=== PATIENT | female | born 1955 | race Caucasian/White ===

== ENCOUNTER 2023-06-01 08:34 | Inpatient (IN) ==
[2023-06-01] MEDS ORDERED: Senna TAB 8.6 mg TAB PO PRN (13:02)
[2023-06-01] MEDS ORDERED: Magnesium Hydroxide LIQ 30 ML UDC PO PRN (13:02)
[2023-06-01] MEDS: Piperacillin/Tazobactam 4.5 GM in NS 0.9% 100 ml BAG 100 ML IV SCH ×2 (18:38→23:53)
[2023-06-01] MEDS ORDERED: Albuterol HFA INHALER 8 gm MDI INH PRN (19:36)
[2023-06-02] MEDS: Piperacillin/Tazobactam 4.5 GM in NS 0.9% 100 ml BAG 100 ML IV SCH ×3 (05:56→18:50)
[2023-06-02 06:18] LABS: ABS Basophils 0.1 10^3/uL (0.0-0.1); ABS Eosinophils 0.1 10^3/uL (0.0-0.5); ABS Lymphocytes 1.7 10^3/uL (1.0-4.8); ABS Monocytes 0.4 10^3/uL (0.0-0.9); ABS Neutrophils 4.1 10^3/uL (1.5-7.6); ABS Nucleated RBC 0.01 10^3/ul; Eosinophil % 2.2 %; Hematocrit 28.9 % (35-45); Hemoglobin 9.6 g/dL (11.5-14.3); Lymphocyte % 26.2 %; Mean Corpuscular Hemoglobin 30.3 pg (27-33); Mean Corpuscular Hgb Conc 33.3 g/dL (31-36); Mean Corpuscular Volume 91.1 fL (80-97); Mean Platelet Volume 7.8 fL (7.5-11.2); Nucleated Red Blood Cells % 0.1 %/100WBC (0.0-0.8); Platelet Count 247 10^3/uL (150-450); Red Blood Count 3.17 10^6/uL (3.63-4.92); White Blood Count 6.4 10^3/uL (3.8-11.8)
[2023-06-02 06:37] LABS: Albumin 3.1 g/dL (3.2-5.2); Albumin/Globulin Ratio 1.1 (1-3); C Reactive Protein 13.63 mg/L (<8.01); Calcium 8.9 mg/dL (8.6-10.3); Creatinine, Serum 0.43 mg/dL (0.51-0.95); Globulin 2.9 g/dL (2-4); Potassium 3.5 mmol/L (3.5-5.0); Total Bilirubin 0.5 mg/dL (0.2-1.0); eGFR CKD-EPI 105.2 (>60)
[2023-06-02] MEDS: Cholecalciferol (VIT D3) 400 units TAB PO SCH (08:42)
[2023-06-02] MEDS: Potassium Chlor 20 meq TAB.ER PO SCH (08:43)
[2023-06-02] MEDS: Heparin 5000 UNITS/ML 1 mL VIAL SUBCUT SCH ×2 (08:48→21:01)
[2023-06-02] MEDS ORDERED: Influenza vaccine *QUAD* *2023-24* 0.5 ML SYRINGE IM ONE (09:00)
[2023-06-03] MEDS: Piperacillin/Tazobactam 4.5 GM in NS 0.9% 100 ml BAG 100 ML IV SCH ×4 (00:04→17:29)
[2023-06-03] MEDS: Cholecalciferol (VIT D3) 400 units TAB PO SCH (09:37)
[2023-06-03] MEDS: Potassium Chlor 20 meq TAB.ER PO SCH (09:41)
[2023-06-03] MEDS: Heparin 5000 UNITS/ML 1 mL VIAL SUBCUT SCH ×2 (09:42→21:11)
[2023-06-04] MEDS: Piperacillin/Tazobactam 4.5 GM in NS 0.9% 100 ml BAG 100 ML IV SCH ×4 (00:03→17:54)
[2023-06-04] MEDS: Potassium Chlor 20 meq TAB.ER PO SCH (08:19)
[2023-06-04] MEDS: Cholecalciferol (VIT D3) 400 units TAB PO SCH (08:20)
[2023-06-04] MEDS: Heparin 5000 UNITS/ML 1 mL VIAL SUBCUT SCH ×2 (08:20→21:15)
[2023-06-05] MEDS: Piperacillin/Tazobactam 4.5 GM in NS 0.9% 100 ml BAG 100 ML IV SCH ×5 (00:07→23:46)
[2023-06-05] MEDS: Potassium Chlor 20 meq TAB.ER PO SCH (08:25)
[2023-06-05] MEDS: Cholecalciferol (VIT D3) 400 units TAB PO SCH (08:25)
[2023-06-05] MEDS: Heparin 5000 UNITS/ML 1 mL VIAL SUBCUT SCH ×2 (08:29→20:53)
[2023-06-05 15:30] LABS: Urine Appearance Clear; Urine Bilirubin Negative (Negative); Urine Blood Negative (Negative); Urine Color Straw; Urine Glucose Negative (Negative); Urine Ketones Negative (Negative); Urine Nitrite Negative (Negative); Urine Protein Negative (Negative); Urine Specific Gravity 1.013 (1.002-1.030); Urine Urobilinogen Negative (Negative)
[2023-06-06] MEDS: Piperacillin/Tazobactam 4.5 GM in NS 0.9% 100 ml BAG 100 ML IV SCH ×3 (05:44→19:11)
[2023-06-06 06:21] LABS: ABS Basophils 0.1 10^3/uL (0.0-0.1); ABS Eosinophils 0.2 10^3/uL (0.0-0.5); ABS Lymphocytes 1.9 10^3/uL (1.0-4.8); ABS Monocytes 0.5 10^3/uL (0.0-0.9); ABS Neutrophils 3.9 10^3/uL (1.5-7.6); ABS Nucleated RBC 0.01 10^3/ul; Eosinophil % 3.5 %; Hematocrit 31.1 % (35-45); Hemoglobin 10.2 g/dL (11.5-14.3); Lymphocyte % 28.9 %; Mean Corpuscular Hemoglobin 29.8 pg (27-33); Mean Corpuscular Hgb Conc 32.9 g/dL (31-36); Mean Corpuscular Volume 90.7 fL (80-97); Nucleated Red Blood Cells % 0.1 %/100WBC (0.0-0.8); Platelet Count 297 10^3/uL (150-450); Red Blood Count 3.43 10^6/uL (3.63-4.92); Red Cell Distribution Width 18.5 % (12-17); White Blood Count 6.6 10^3/uL (3.8-11.8)
[2023-06-06 06:31] LABS: Albumin 3.4 g/dL (3.2-5.2); Albumin/Globulin Ratio 1.1 (1-3); C Reactive Protein 8.01 mg/L (<8.01); Calcium 9.3 mg/dL (8.6-10.3); Creatinine, Serum 0.47 mg/dL (0.51-0.95); Potassium 3.5 mmol/L (3.5-5.0); Total Bilirubin 0.4 mg/dL (0.2-1.0); Total Protein 6.4 g/dL (6.4-8.9)
[2023-06-06] MEDS: Cholecalciferol (VIT D3) 400 units TAB PO SCH (08:03)
[2023-06-06] MEDS: Heparin 5000 UNITS/ML 1 mL VIAL SUBCUT SCH ×2 (08:12→20:17)
[2023-06-06] MEDS: Potassium Chlor 20 meq TAB.ER PO SCH (08:13)
[2023-06-06 10:26] LABS: Erythrocyte Sed Rate 58 mm/Hr (0-29)
[2023-06-07] MEDS: Piperacillin/Tazobactam 4.5 GM in NS 0.9% 100 ml BAG 100 ML IV SCH ×4 (05:32→18:11)
[2023-06-07] MEDS: Potassium Chlor 20 meq TAB.ER PO SCH (07:56)
[2023-06-07] MEDS: Cholecalciferol (VIT D3) 400 units TAB PO SCH (07:57)
[2023-06-07] MEDS: Heparin 5000 UNITS/ML 1 mL VIAL SUBCUT SCH ×2 (08:04→21:01)
[2023-06-08] MEDS: Piperacillin/Tazobactam 4.5 GM in NS 0.9% 100 ml BAG 100 ML IV SCH ×4 (00:04→17:31)
[2023-06-08] MEDS: Potassium Chlor 20 meq TAB.ER PO SCH (08:30)
[2023-06-08] MEDS: Cholecalciferol (VIT D3) 400 units TAB PO SCH (08:35)
[2023-06-08] MEDS: Heparin 5000 UNITS/ML 1 mL VIAL SUBCUT SCH ×2 (08:37→20:55)
[2023-06-08] MEDS ORDERED: Dextrose 50% Syringe 50 ml 25 GM/50 ML SYRINGE IV PUSH PRN (18:16)
[2023-06-09] MEDS: Piperacillin/Tazobactam 4.5 GM in NS 0.9% 100 ml BAG 100 ML IV SCH ×4 (00:05→21:09)
[2023-06-09] MEDS: Cholecalciferol (VIT D3) 400 units TAB PO SCH (09:29)
[2023-06-09] MEDS: Potassium Chlor 20 meq TAB.ER PO SCH (09:34)
[2023-06-09] MEDS: Heparin 5000 UNITS/ML 1 mL VIAL SUBCUT SCH ×2 (09:34→21:10)
[2023-06-10] MEDS: Piperacillin/Tazobactam 4.5 GM in NS 0.9% 100 ml BAG 100 ML IV SCH ×4 (02:15→20:42)
[2023-06-10] MEDS: Cholecalciferol (VIT D3) 400 units TAB PO SCH (09:26)
[2023-06-10] MEDS: Potassium Chlor 20 meq TAB.ER PO SCH (09:28)
[2023-06-10] MEDS: Heparin 5000 UNITS/ML 1 mL VIAL SUBCUT SCH ×2 (09:58→20:31)
[2023-06-11] MEDS: Piperacillin/Tazobactam 4.5 GM in NS 0.9% 100 ml BAG 100 ML IV SCH ×4 (02:17→19:55)
[2023-06-11] MEDS: Potassium Chlor 20 meq TAB.ER PO SCH (08:32)
[2023-06-11] MEDS: Cholecalciferol (VIT D3) 400 units TAB PO SCH (08:34)
[2023-06-11] MEDS: Heparin 5000 UNITS/ML 1 mL VIAL SUBCUT SCH ×2 (08:36→19:56)
[2023-06-12] MEDS: Piperacillin/Tazobactam 4.5 GM in NS 0.9% 100 ml BAG 100 ML IV SCH ×4 (01:58→19:55)
[2023-06-12] MEDS: Heparin 5000 UNITS/ML 1 mL VIAL SUBCUT SCH ×2 (08:44→20:29)
[2023-06-12] MEDS: Potassium Chlor 20 meq TAB.ER PO SCH (08:47)
[2023-06-12] MEDS: Cholecalciferol (VIT D3) 400 units TAB PO SCH (08:48)
[2023-06-13] MEDS: Piperacillin/Tazobactam 4.5 GM in NS 0.9% 100 ml BAG 100 ML IV SCH ×4 (02:03→20:38)
[2023-06-13 05:55] LABS: ABS Basophils 0.1 10^3/uL (0.0-0.1); ABS Eosinophils 0.2 10^3/uL (0.0-0.5); ABS Lymphocytes 2.3 10^3/uL (1.0-4.8); ABS Monocytes 0.8 10^3/uL (0.0-0.9); ABS Neutrophils 5.7 10^3/uL (1.5-7.6); ABS Nucleated RBC 0.01 10^3/ul; Eosinophil % 2.1 %; Hematocrit 34.9 % (35-45); Hemoglobin 11.6 g/dL (11.5-14.3); Lymphocyte % 25.2 %; Mean Corpuscular Hemoglobin 29.7 pg (27-33); Mean Corpuscular Hgb Conc 33.2 g/dL (31-36); Mean Corpuscular Volume 89.4 fL (80-97); Mean Platelet Volume 7.5 fL (7.5-11.2); Nucleated Red Blood Cells % 0.1 %/100WBC (0.0-0.8); Platelet Count 323 10^3/uL (150-450); Red Cell Distribution Width 17.2 % (12-17); White Blood Count 9.1 10^3/uL (3.8-11.8)
[2023-06-13 06:12] LABS: Albumin 3.8 g/dL (3.2-5.2); Albumin/Globulin Ratio 1.3 (1-3); C Reactive Protein 5.23 mg/L (<8.01); Calcium 9.7 mg/dL (8.6-10.3); Creatinine, Serum 0.69 mg/dL (0.51-0.95); Potassium 3.6 mmol/L (3.5-5.0); Total Bilirubin 0.6 mg/dL (0.2-1.0); Total Protein 6.8 g/dL (6.4-8.9); eGFR CKD-EPI 93.9 (>60)
[2023-06-13] MEDS: Potassium Chlor 20 meq TAB.ER PO SCH (08:46)
[2023-06-13] MEDS: Cholecalciferol (VIT D3) 400 units TAB PO SCH (08:46)
[2023-06-13] MEDS: Heparin 5000 UNITS/ML 1 mL VIAL SUBCUT SCH ×2 (08:55→20:37)
[2023-06-13 10:55] LABS: Erythrocyte Sed Rate 49 mm/Hr (0-29)
[2023-06-14] MEDS: Piperacillin/Tazobactam 4.5 GM in NS 0.9% 100 ml BAG 100 ML IV SCH ×4 (01:15→20:46)
[2023-06-14] MEDS: Heparin 5000 UNITS/ML 1 mL VIAL SUBCUT SCH ×2 (08:28→20:49)
[2023-06-14] MEDS: Cholecalciferol (VIT D3) 400 units TAB PO SCH (08:30)
[2023-06-14] MEDS: Potassium Chlor 20 meq TAB.ER PO SCH (08:30)
[2023-06-14] MEDS: PAIN RELIEVING RUB (MENTHOL/SALICYLATE) 1 APPLIC TUBE TOPICAL PRN ×2 (10:44→20:54)
[2023-06-15] MEDS: Piperacillin/Tazobactam 4.5 GM in NS 0.9% 100 ml BAG 100 ML IV SCH ×4 (01:18→23:32)
[2023-06-15] MEDS: Heparin 5000 UNITS/ML 1 mL VIAL SUBCUT SCH ×2 (11:09→20:28)
[2023-06-15] MEDS: Potassium Chlor 20 meq TAB.ER PO SCH (11:10)
[2023-06-15] MEDS: Cholecalciferol (VIT D3) 400 units TAB PO SCH (11:11)
[2023-06-16] MEDS: Piperacillin/Tazobactam 4.5 GM in NS 0.9% 100 ml BAG 100 ML IV SCH ×4 (05:33→23:32)
[2023-06-16] MEDS: Heparin 5000 UNITS/ML 1 mL VIAL SUBCUT SCH ×2 (08:14→20:51)
[2023-06-16] MEDS: Potassium Chlor 20 meq TAB.ER PO SCH (08:18)
[2023-06-16] MEDS: PAIN RELIEVING RUB (MENTHOL/SALICYLATE) 1 APPLIC TUBE TOPICAL PRN ×2 (11:06→20:54)
[2023-06-16] MEDS: Cholecalciferol (VIT D3) 400 units TAB PO SCH (12:10)
[2023-06-17] MEDS: Piperacillin/Tazobactam 4.5 GM in NS 0.9% 100 ml BAG 100 ML IV SCH ×4 (05:35→22:42)
[2023-06-17] MEDS: Cholecalciferol (VIT D3) 400 units TAB PO SCH (08:55)
[2023-06-17] MEDS: Potassium Chlor 20 meq TAB.ER PO SCH (08:55)
[2023-06-18] MEDS: Piperacillin/Tazobactam 4.5 GM in NS 0.9% 100 ml BAG 100 ML IV SCH ×4 (05:03→22:26)
[2023-06-18] MEDS: Cholecalciferol (VIT D3) 400 units TAB PO SCH (09:07)
[2023-06-18] MEDS: Potassium Chlor 20 meq TAB.ER PO SCH (09:07)
[2023-06-18] MEDS: Heparin 5000 UNITS/ML 1 mL VIAL SUBCUT SCH ×2 (09:19→20:36)
[2023-06-19] MEDS: Piperacillin/Tazobactam 4.5 GM in NS 0.9% 100 ml BAG 100 ML IV SCH ×4 (05:31→22:42)
[2023-06-19] MEDS: Potassium Chlor 20 meq TAB.ER PO SCH (09:37)
[2023-06-19] MEDS: Heparin 5000 UNITS/ML 1 mL VIAL SUBCUT SCH ×2 (09:42→20:19)
[2023-06-19] MEDS: Cholecalciferol (VIT D3) 400 units TAB PO SCH (09:42)
[2023-06-20] MEDS: Piperacillin/Tazobactam 4.5 GM in NS 0.9% 100 ml BAG 100 ML IV SCH ×4 (06:05→23:24)
[2023-06-20 06:28] LABS: ABS Basophils 0.1 10^3/uL (0.0-0.1); ABS Eosinophils 0.1 10^3/uL (0.0-0.5); ABS Lymphocytes 2.2 10^3/uL (1.0-4.8); ABS Monocytes 0.8 10^3/uL (0.0-0.9); ABS Neutrophils 5.4 10^3/uL (1.5-7.6); ABS Nucleated RBC 0.01 10^3/ul; Eosinophil % 1.7 %; Hematocrit 32.9 % (35-45); Hemoglobin 10.8 g/dL (11.5-14.3); Lymphocyte % 25.8 %; Mean Corpuscular Hemoglobin 29.1 pg (27-33); Mean Corpuscular Hgb Conc 32.8 g/dL (31-36); Mean Corpuscular Volume 88.7 fL (80-97); Mean Platelet Volume 8.2 fL (7.5-11.2); Nucleated Red Blood Cells % 0.1 %/100WBC (0.0-0.8); Platelet Count 228 10^3/uL (150-450); Red Blood Count 3.71 10^6/uL (3.63-4.92); Red Cell Distribution Width 16.2 % (12-17); White Blood Count 8.6 10^3/uL (3.8-11.8)
[2023-06-20 06:50] LABS: Albumin 3.6 g/dL (3.2-5.2); Albumin/Globulin Ratio 1.2 (1-3); C Reactive Protein 37.85 mg/L (<8.01); Calcium 9.2 mg/dL (8.6-10.3); Creatinine, Serum 0.52 mg/dL (0.51-0.95); Globulin 2.9 g/dL (2-4); Potassium 3.4 mmol/L (3.5-5.0); Total Bilirubin 0.7 mg/dL (0.2-1.0); Total Protein 6.5 g/dL (6.4-8.9); eGFR CKD-EPI 99.9 (>60)
[2023-06-20] MEDS: Cholecalciferol (VIT D3) 400 units TAB PO SCH (08:41)
[2023-06-20] MEDS: Potassium Chlor 20 meq TAB.ER PO SCH ×2 (08:42→20:29)
[2023-06-20] MEDS: Heparin 5000 UNITS/ML 1 mL VIAL SUBCUT SCH ×2 (09:06→20:30)
[2023-06-20] MEDS: PAIN RELIEVING RUB (MENTHOL/SALICYLATE) 1 APPLIC TUBE TOPICAL PRN (13:52)
[2023-06-20 14:36] LABS: Erythrocyte Sed Rate 35 mm/Hr (0-29)
[2023-06-20] MEDS ORDERED: fentaNYL PATCH 12 MCG/HR 1 PATCH TRANSDERM SCH (19:00)
[2023-06-20] MEDS: fentaNYL Patch Check Q Shift NOTE FOLLOW UP SCH ×2 (20:38→23:35)
[2023-06-21] MEDS: Piperacillin/Tazobactam 4.5 GM in NS 0.9% 100 ml BAG 100 ML IV SCH ×4 (05:06→23:16)
[2023-06-21] MEDS: fentaNYL Patch Check Q Shift NOTE FOLLOW UP SCH ×3 (07:06→23:09)
[2023-06-21] MEDS: Cholecalciferol (VIT D3) 400 units TAB PO SCH (09:23)
[2023-06-21] MEDS: Potassium Chlor 20 meq TAB.ER PO SCH ×2 (09:25→21:16)
[2023-06-21] MEDS: Heparin 5000 UNITS/ML 1 mL VIAL SUBCUT SCH ×2 (09:33→21:17)
[2023-06-21] MEDS: PAIN RELIEVING RUB (MENTHOL/SALICYLATE) 1 APPLIC TUBE TOPICAL PRN (13:52)
[2023-06-22] MEDS: Piperacillin/Tazobactam 4.5 GM in NS 0.9% 100 ml BAG 100 ML IV SCH ×4 (04:59→23:23)
[2023-06-22] MEDS: fentaNYL Patch Check Q Shift NOTE FOLLOW UP SCH ×2 (06:53→20:21)
[2023-06-22] MEDS: Potassium Chlor 20 meq TAB.ER PO SCH ×2 (08:36→20:19)
[2023-06-22] MEDS: Cholecalciferol (VIT D3) 400 units TAB PO SCH (08:36)
[2023-06-22] MEDS: Heparin 5000 UNITS/ML 1 mL VIAL SUBCUT SCH ×2 (08:42→20:20)
[2023-06-22] MEDS: PAIN RELIEVING RUB (MENTHOL/SALICYLATE) 1 APPLIC TUBE TOPICAL PRN ×2 (08:46→20:31)
[2023-06-23] MEDS: Piperacillin/Tazobactam 4.5 GM in NS 0.9% 100 ml BAG 100 ML IV SCH ×4 (04:51→22:00)
[2023-06-23] MEDS: fentaNYL Patch Check Q Shift NOTE FOLLOW UP SCH ×2 (07:17→19:18)
[2023-06-23] MEDS: Cholecalciferol (VIT D3) 400 units TAB PO SCH (10:47)
[2023-06-23] MEDS: Heparin 5000 UNITS/ML 1 mL VIAL SUBCUT SCH ×2 (10:49→21:31)
[2023-06-23] MEDS: Potassium Chlor 20 meq TAB.ER PO SCH ×2 (10:52→21:29)
[2023-06-23] MEDS: fentaNYL PATCH 25 MCG/HR 1 PATCH TRANSDERM SCH (19:12)
[2023-06-23] MEDS ORDERED: Ondansetron ODT 4 mg TAB 4 MG TAB PO PRN (22:20)
[2023-06-24] MEDS: Piperacillin/Tazobactam 4.5 GM in NS 0.9% 100 ml BAG 100 ML IV SCH ×4 (03:06→21:05)
[2023-06-24] MEDS: fentaNYL Patch Check Q Shift NOTE FOLLOW UP SCH ×2 (07:25→23:08)
[2023-06-24] MEDS: Cholecalciferol (VIT D3) 400 units TAB PO SCH (08:15)
[2023-06-24] MEDS: Potassium Chlor 20 meq TAB.ER PO SCH ×2 (08:16→20:14)
[2023-06-24] MEDS: Heparin 5000 UNITS/ML 1 mL VIAL SUBCUT SCH ×2 (08:27→20:17)
[2023-06-25] MEDS: Piperacillin/Tazobactam 4.5 GM in NS 0.9% 100 ml BAG 100 ML IV SCH ×4 (03:11→21:03)
[2023-06-25] MEDS: fentaNYL Patch Check Q Shift NOTE FOLLOW UP SCH ×2 (07:52→19:13)
[2023-06-25] MEDS: Cholecalciferol (VIT D3) 400 units TAB PO SCH (07:55)
[2023-06-25] MEDS: Potassium Chlor 20 meq TAB.ER PO SCH ×2 (07:56→20:58)
[2023-06-25] MEDS: Heparin 5000 UNITS/ML 1 mL VIAL SUBCUT SCH ×2 (08:27→20:58)
[2023-06-26] MEDS: Piperacillin/Tazobactam 4.5 GM in NS 0.9% 100 ml BAG 100 ML IV SCH ×4 (02:57→20:56)
[2023-06-26] MEDS: fentaNYL Patch Check Q Shift NOTE FOLLOW UP SCH ×2 (07:18→20:52)
[2023-06-26] MEDS: Cholecalciferol (VIT D3) 400 units TAB PO SCH (09:41)
[2023-06-26] MEDS: Potassium Chlor 20 meq TAB.ER PO SCH ×2 (09:45→20:56)
[2023-06-26] MEDS: Heparin 5000 UNITS/ML 1 mL VIAL SUBCUT SCH ×2 (10:17→20:53)
[2023-06-26] MEDS: fentaNYL PATCH 25 MCG/HR 1 PATCH TRANSDERM SCH (17:02)
[2023-06-27] MEDS: Piperacillin/Tazobactam 4.5 GM in NS 0.9% 100 ml BAG 100 ML IV SCH ×4 (04:20→22:04)
[2023-06-27 05:32] LABS: ABS Basophils 0.1 10^3/uL (0.0-0.1); ABS Eosinophils 0.2 10^3/uL (0.0-0.5); ABS Lymphocytes 2.1 10^3/uL (1.0-4.8); ABS Monocytes 0.7 10^3/uL (0.0-0.9); ABS Neutrophils 4.5 10^3/uL (1.5-7.6); Eosinophil % 2.8 %; Hematocrit 33.3 % (35-45); Lymphocyte % 27.6 %; Mean Corpuscular Hgb Conc 32.9 g/dL (31-36); Mean Corpuscular Volume 88.2 fL (80-97); Mean Platelet Volume 7.7 fL (7.5-11.2); Platelet Count 309 10^3/uL (150-450); Red Blood Count 3.78 10^6/uL (3.63-4.92); Red Cell Distribution Width 15.8 % (12-17); White Blood Count 7.6 10^3/uL (3.8-11.8)
[2023-06-27 06:06] LABS: Albumin 3.6 g/dL (3.2-5.2); Albumin/Globulin Ratio 1.3 (1-3); C Reactive Protein 13.42 mg/L (<8.01); Calcium 9.3 mg/dL (8.6-10.3); Creatinine, Serum 0.67 mg/dL (0.51-0.95); Globulin 2.8 g/dL (2-4); Potassium 3.9 mmol/L (3.5-5.0); Total Bilirubin 0.5 mg/dL (0.2-1.0); Total Protein 6.4 g/dL (6.4-8.9)
[2023-06-27 06:47] LABS: Erythrocyte Sed Rate 30 mm/Hr (0-29)
[2023-06-27] MEDS: fentaNYL Patch Check Q Shift NOTE FOLLOW UP SCH ×2 (07:03→23:42)
[2023-06-27] MEDS: Heparin 5000 UNITS/ML 1 mL VIAL SUBCUT SCH ×2 (07:35→21:52)
[2023-06-27] MEDS: Cholecalciferol (VIT D3) 400 units TAB PO SCH (07:38)
[2023-06-27] MEDS: Potassium Chlor 20 meq TAB.ER PO SCH ×2 (07:39→21:51)
[2023-06-28] MEDS: Piperacillin/Tazobactam 4.5 GM in NS 0.9% 100 ml BAG 100 ML IV SCH ×4 (03:38→22:02)
[2023-06-28] MEDS: fentaNYL Patch Check Q Shift NOTE FOLLOW UP SCH ×2 (07:32→23:11)
[2023-06-28] MEDS: Cholecalciferol (VIT D3) 400 units TAB PO SCH (09:16)
[2023-06-28] MEDS: Potassium Chlor 20 meq TAB.ER PO SCH ×2 (09:17→21:44)
[2023-06-28] MEDS: Heparin 5000 UNITS/ML 1 mL VIAL SUBCUT SCH ×2 (09:19→21:41)
[2023-06-28] MEDS: PAIN RELIEVING RUB (MENTHOL/SALICYLATE) 1 APPLIC TUBE TOPICAL PRN (09:58)
[2023-06-29] MEDS: Piperacillin/Tazobactam 4.5 GM in NS 0.9% 100 ml BAG 100 ML IV SCH ×4 (03:24→20:53)
[2023-06-29] MEDS: fentaNYL Patch Check Q Shift NOTE FOLLOW UP SCH ×2 (07:11→18:57)
[2023-06-29] MEDS: Heparin 5000 UNITS/ML 1 mL VIAL SUBCUT SCH ×2 (10:36→21:04)
[2023-06-29] MEDS: Potassium Chlor 20 meq TAB.ER PO SCH ×2 (10:38→21:03)
[2023-06-29] MEDS: Cholecalciferol (VIT D3) 400 units TAB PO SCH (10:40)
[2023-06-29] MEDS: fentaNYL PATCH 25 MCG/HR 1 PATCH TRANSDERM SCH (15:51)
[2023-06-30] MEDS: fentaNYL Patch Check Q Shift NOTE FOLLOW UP SCH ×3 (07:12→23:11)
[2023-06-30] MEDS: Heparin 5000 UNITS/ML 1 mL VIAL SUBCUT SCH ×2 (07:38→20:11)
[2023-06-30] MEDS: Cholecalciferol (VIT D3) 400 units TAB PO SCH (07:41)
[2023-06-30] MEDS: Potassium Chlor 20 meq TAB.ER PO SCH ×2 (07:42→20:12)
[2023-06-30] MEDS: PAIN RELIEVING RUB (MENTHOL/SALICYLATE) 1 APPLIC TUBE TOPICAL PRN (10:26)
[2023-07-01] MEDS: fentaNYL Patch Check Q Shift NOTE FOLLOW UP SCH ×3 (07:00→23:08)
[2023-07-01] MEDS: Potassium Chlor 20 meq TAB.ER PO SCH ×2 (08:02→21:35)
[2023-07-01] MEDS: Cholecalciferol (VIT D3) 400 units TAB PO SCH ×2 (08:05→08:16)
[2023-07-01] MEDS: Heparin 5000 UNITS/ML 1 mL VIAL SUBCUT SCH ×2 (08:11→21:36)
[2023-07-02] MEDS: fentaNYL Patch Check Q Shift NOTE FOLLOW UP SCH ×2 (07:09→23:07)
[2023-07-02] MEDS: Cholecalciferol (VIT D3) 400 units TAB PO SCH (07:50)
[2023-07-02] MEDS: Potassium Chlor 20 meq TAB.ER PO SCH ×2 (07:51→20:01)
[2023-07-02] MEDS: PAIN RELIEVING RUB (MENTHOL/SALICYLATE) 1 APPLIC TUBE TOPICAL PRN (07:52)
[2023-07-02] MEDS: Heparin 5000 UNITS/ML 1 mL VIAL SUBCUT SCH ×2 (07:54→20:02)
[2023-07-02] MEDS: Bacitracin OINTMENT TUBE TOPICAL SCH ×2 (14:14→19:51)
[2023-07-02] MEDS: fentaNYL PATCH 25 MCG/HR 1 PATCH TRANSDERM SCH (15:13)
[2023-07-03] MEDS: fentaNYL Patch Check Q Shift NOTE FOLLOW UP SCH ×4 (07:39→23:20)
[2023-07-03] MEDS: Cholecalciferol (VIT D3) 400 units TAB PO SCH (09:45)
[2023-07-03] MEDS: Potassium Chlor 20 meq TAB.ER PO SCH ×2 (09:46→21:31)
[2023-07-03] MEDS: Heparin 5000 UNITS/ML 1 mL VIAL SUBCUT SCH ×2 (09:51→21:32)
[2023-07-03] MEDS: Bacitracin OINTMENT TUBE TOPICAL SCH ×3 (10:19→21:31)
[2023-07-04 06:29] LABS: ABS Eosinophils 0.2 10^3/uL (0.0-0.5); ABS Lymphocytes 2.5 10^3/uL (1.0-4.8); ABS Monocytes 0.7 10^3/uL (0.0-0.9); ABS Neutrophils 6.1 10^3/uL (1.5-7.6); ABS Nucleated RBC 0.01 10^3/ul; Eosinophil % 2.2 %; Hemoglobin 12.8 g/dL (11.5-14.3); Lymphocyte % 26.6 %; Mean Corpuscular Hemoglobin 28.6 pg (27-33); Mean Corpuscular Hgb Conc 32.8 g/dL (31-36); Mean Corpuscular Volume 87.2 fL (80-97); Mean Platelet Volume 7.8 fL (7.5-11.2); Nucleated Red Blood Cells % 0.1 %/100WBC (0.0-0.8); Platelet Count 302 10^3/uL (150-450); Red Blood Count 4.48 10^6/uL (3.63-4.92); Red Cell Distribution Width 15.1 % (12-17); White Blood Count 9.6 10^3/uL (3.8-11.8)
[2023-07-04] MEDS: fentaNYL Patch Check Q Shift NOTE FOLLOW UP SCH ×3 (07:28→23:18)
[2023-07-04 07:40] LABS: Albumin 4.1 g/dL (3.2-5.2); Albumin/Globulin Ratio 1.4 (1-3); C Reactive Protein 3.79 mg/L (<8.01); Creatinine, Serum 0.58 mg/dL (0.51-0.95); Globulin 2.9 g/dL (2-4); Potassium 4.1 mmol/L (3.5-5.0); Total Bilirubin 0.7 mg/dL (0.2-1.0); eGFR CKD-EPI 97.3 (>60)
[2023-07-04 08:58] LABS: Erythrocyte Sed Rate 17 mm/Hr (0-29)
[2023-07-04] MEDS: Heparin 5000 UNITS/ML 1 mL VIAL SUBCUT SCH ×2 (09:59→20:53)
[2023-07-04] MEDS: Cholecalciferol (VIT D3) 400 units TAB PO SCH (09:59)
[2023-07-04] MEDS: Bacitracin OINTMENT TUBE TOPICAL SCH ×3 (09:59→20:52)
[2023-07-04] MEDS: Potassium Chlor 20 meq TAB.ER PO SCH ×2 (10:00→20:54)
[2023-07-04 15:20] LABS: Rapid COVID-19 Molecular Undetected (Undetected)
[2023-07-05 05:59] VITALS: BP 118/83
[2023-07-05] MEDS: fentaNYL Patch Check Q Shift NOTE FOLLOW UP SCH (07:20)
[2023-07-05] MEDS: Cholecalciferol (VIT D3) 400 units TAB PO SCH (08:20)
[2023-07-05] MEDS: Potassium Chlor 20 meq TAB.ER PO SCH (08:23)
[2023-07-05] MEDS: Heparin 5000 UNITS/ML 1 mL VIAL SUBCUT SCH (08:23)
[2023-07-05] MEDS: Bacitracin OINTMENT TUBE TOPICAL SCH (14:03)
== END 2023-07-05 16:28 | DRG 558 ==
LOC: PMRU 11:55
PROVIDERS: ADMIT Physical Medicine & Rehabilitation; ATTEND Physical Medicine & Rehabilitation